=== PATIENT | female | born 1945 | race Caucasian/White ===

== ENCOUNTER 2017-12-26 09:26 | Observation (INO) | payer MEDICARE, OTHER ==
[2017-12-26 10:23] LABS: #Eosinphils 0.1 thou/uL (0.0-0.7); #Lymphocytes 1.3 thou/uL (1.20-3.40); #Monocytes 0.7 thou/uL (0.11-0.59); #Neutrophils 7.4 thou/uL (1.40-6.50); %Basophils 0.2 % (0.0-1.0); %Monocytes 7.4 % (0.0-10.0); %Neutrophils 77.3 % (42.0-75.0); Mean Corpuscular HGB CONC 33.5 g/dL (32.0-36.0); Mean Corpuscular Hemoglobin 30.7 pg (27.0-31.0); Mean Corpuscular Volume 91.7 fL (78.0-98.0); Mean Platelet Volume 8.1 fL (7.4-10.4); Platelet Count 212 thou/uL (130-400); RBC Distribution Width 12.8 % (11.5-14.5); Red Blood Cell (RBC) Count 4.56 mill/uL (4.20-5.40); White Blood Cell (WBC) Count 9.5 thou/uL (4.8-10.8)
[2017-12-26 10:29] LABS: INR-International Normal Ratio 2.3; PTT 33.7 SEC (22.9-36.1); Prothrombin Time 25.4 SEC (12.0-14.7)
[2017-12-26 10:46] LABS: ALT (SGPT) 15 U/L (8-55); AST (SGOT) 20 U/L (5-34); Albumin 3.8 g/dL (3.4-4.8); Alkaline Phosphatase 74 U/L (40-150); Anion Gap 13 mmol/L (10-20); BUN (Urea Nitrogen) 21 mg/dL (9.8-20.1); CK (CPK) 159 U/L (29-168); Calc. Creatinine Clearance 0 mL/min (70-130); Calcium 8.9 mg/dL (7.8-10.44); Carbon Dioxide 23 mmol/L (23-31); Chloride 109 mmol/L (98-107); Estimated GFR-MDRD 67; Glucose 108 mg/dL (83-110); Potassium 3.6 mmol/L (3.5-5.1); Protein, Total 6.8 g/dL (6.0-8.3); Sodium 141 mmol/L (136-145)
[2017-12-26 10:50] LABS: CKMB 2.6 ng/mL (0-6.6); Troponin I Less than 0.010 ng/mL (< 0.028)
--- NOTE | 2017-12-26 11:17 | CT ---
CT HEAD WITHOUT IV CONTRAST: Date: 12/26/17 HISTORY: Altered mental status, syncope. FINDINGS: There are scattered areas of decreased attenuation in the periventricular white matter, which are non specific, but likely reflective of mild chronic small vessel ischemic changes. There is no evidence o f an acute cortical infarction, hemorrhage, mass effect, or midline shift. Ventricular system is norm al in size, shape, and position. Mild cerebral volume loss is present, not unexpected for the patient 's age. Visualized paranasal sinuses and mastoid air cells are clear. Calvarial structures are intact . IMPRESSION: 1. No acute intracranial abnormality is demonstrated. 2. Mild chronic small vessel ischemic changes. POS: [facility]
[2017-12-26 11:38] LABS: Bilirubin Negative (Negative); Blood, Urine Trace (Negative); Glucose, Urine (Dipstick) Negative (Negative); Leukocyte Trace (Negative); Nitrite Negative (Negative); Protein, Urine (Dipstick) Negative (Neg-Trace); Urobilinogen 0.2 mg/dL (0.2-1.0)
--- NOTE | 2017-12-26 11:41 | CT ---
CTA OF THE THORAX UTILIZING IV CONTRAST AND 3D REFORMATTED IMAGING: Date: 12/26/17 INDICATION: History of syncope and history of PE. Patient has a history of PE and is currently on warfarin therap y. FINDINGS: No central or segmental pulmonary embolus is evident. No confluent air space opacity or pleural effus ion is evident. There are coronary artery thoracic aortic calcifications. There is are mild mitral an nular calcifications. No pathologically enlarged lymph nodes are evident. Visualized upper abdomen is unremarkable. There is diffuse osteopenia. There is scattered degenerative and osteoarthritic change. No definite a cute osseous abnormality is demonstrated. IMPRESSION: No central or segmental pulmonary embolus demonstrated. POS: [facility]
[2017-12-26 11:46] LABS: Clarity CLEAR (Clear)
[2017-12-26 11:48] LABS: Bacteria/HPF None Seen HPF (None Seen); Hyaline Casts/LPF NONE SEEN LPF (0-3 Hyaline); RBC/HPF None Seen HPF (0-3); Squamous Epithelial 0-3 HPF (0-3); WBC/HPF None Seen HPF (0-3)
[2017-12-26] MEDS ORDERED: methylPREDNISolone Sod Succ/PF 125 MG/2 ML VIAL ONE (12:26)
[2017-12-26] MEDS ORDERED: ISOVUE-370 76%-LOCM 1 ML ONE (14:40)
[2017-12-26 14:43] VITALS: BMI 36.8
[2017-12-26] MEDS ORDERED: Ondansetron ODT 4 MG TAB PO PRN (18:19)
[2017-12-26] MEDS ORDERED: Acetaminophen 325 MG TAB PO PRN (18:19)
[2017-12-26] MEDS ORDERED: diphenhydrAMINE 25 MG CAP PO PRN (18:34)
[2017-12-26] MEDS ORDERED: Warfarin Sodium 2.5 MG TAB PO SCH (20:00)
[2017-12-26] MEDS: Sodium Chloride 0.9% 1,000 ML IV SCH (20:44)
[2017-12-26] MEDS: Famotidine 20 MG TAB PO SCH (20:44)
--- NOTE | 2017-12-26 22:55 | HP ---
CHIEF COMPLAINT: Left-sided weakness. HISTORY OF PRESENT ILLNESS: The patient is a 72-year-old female, who was admitted today. She was in her usual state of health this morning, getting up and around in her yard, when she placed her arm against her chest she felt a sting on her right wrist. She then saw a yellow jacket lying on the ground, that was not completely at that moment. She subsequently had pain in the area, but was not unlike prior wasp stings that she had experienced in the past. The patient basically walked around her house to move a sprinkler and when she came back to the front yard something happened that she has some difficulty explaining or describing. She knows she was profoundly weak and a bit out of it mentally. There were some men around who had been working on the house who came to her aid. She was having some trouble concentrating, felt profoundly fatigued. They attempted to wrap some cool washcloths around her wrist. However, when they would do that and let go of her left wrist, her arm would simply fall down. She felt like she was just generally profoundly weak, but felt like it was more so on the left than the right. They called an ambulance and the ambulance came to assess the patient and found the patient not to be using left facial muscles, adequately either. They felt the patient might be having stroke symptoms and subsequently transported her here via [facility]. The patient's symptoms subsequently fully and completely resolved. She feels like she is at her baseline now. She has had increasing redness and swelling along the flexor portion of the right forearm emanating from the initial envenomation. She states she has never had a reaction like this to anything before. She does admit to having significant itching around the fingertips of both hands in the midst of this particular episode. REVIEW OF SYSTEMS: Negative thorough a 10-system review other than those things mentioned in the history of present illness. PAST MEDICAL HISTORY: Notable for reflux, hypothyroidism, hyperlipidemia, fibromyalgia syndrome, overactive bladder, and a PE/DVT. PAST SURGICAL HISTORY: x2. With one of those, she also had an appendectomy; with the second, she had a hysterectomy. She subsequently had an oophorectomy and had a left hip surgery, right foot surgery, and tonsillectomy. FAMILY HISTORY: Notable for colon cancer and breast cancer in her mother, who is still alive and functioning well and with her today. Her father of a myocardial infarction. SOCIAL HISTORY: The patient is a nonsmoker, nondrinker. She is a and lives in [place], [place] and her primary care provider is Dr. Tiny Gomez. PHYSICAL EXAMINATION: VITAL SIGNS: Temperature 98.3, pulse 79, respirations 18, O2 sat 93% on room air, blood pressure is 143/90. GENERAL APPEARANCE: Age appropriate female, in no distress. She is awake, alert, oriented, pleasant, and cooperative. HEENT: PERRL. No OP lesions. NECK: Supple and symmetric without lymphadenopathy, JVD or bruits. CARDIOVASCULAR: Regular rate and rhythm without murmurs, gallops or rubs. LUNGS: Clear to auscultation bilaterally with good chest wall expansion and air exchange. ABDOMEN: Flat, soft, nontender, nondistended with positive bowel sounds. No masses, no organomegaly. EXTREMITIES: Warm and dry. There is erythema encompassing 75% of the right flexor forearm. There was a line demarcated when she was admitted and it has exceeded that by 1-2 cm. This area is minimally tender, minimally warm. LABORATORY DATA AND IMAGING: White count 9.5, hemoglobin 14.0, platelets 212. INR is 2.3. Chemistries normal with the exception of a chloride of 109, BUN of 21. Troponin less than 0.01. Urinalysis normal. CTA of the chest shows no pulmonary embolus and CT scan of the brain shows no abnormalities other than some modest evidence of small vessel disease. IMPRESSION AND PLAN: 1. Left-sided weakness which has resolved. The patient had some generalized weakness, but it sounds like it was more substantial on the left and is now completely resolved. This is concerning for possible reaction to the hymenoptera envenomation. She may have had significant elevation or decrease of her blood pressure, resulting in some of these symptoms. She appears to have had an allergic reaction based on the itching in her fingers and the proximity of her symptoms to the envenomation. She did receive a dose of steroids in the emergency department and she appears to be stable at this time. I do not believe there is any more aggressive intervention needed at this time. However, if she does demonstrate any further symptoms, we will need more aggressive antihistamine therapy and possibly additional steroids. We will go ahead and obtain echocardiogram and carotid Dopplers as this may have only potentiated underlying problems that may have preexistent. 2. Hypothyroidism, stable. We will continue with her usual levothyroxine. 3. Hyperlipidemia. Continue with her usual home medications. [facility]
--- NOTE | 2017-12-27 00:32 | CON ---
DATE OF CONSULTATION: 12/26/2017 CHIEF COMPLAINT: Possible transient ischemic attack. HISTORY OF PRESENT ILLNESS: [place] has been stung by wasp even as a child and she also had a scorpion sting, a spider bite, and since she is out and there is a lot of trees a round where they live. Patient woke up early this morning and was getting water to the flower bed. She had yellow-jacket landed on her right arm and she does not remember what happened next. The yell ow jacket did sting up and she hit her chest, and then yellow jacket fell down, but patient felt one of the workers coming down her street and the next thing she knows is they are trying to help her up and she could not move her left arm and she does not know the full extent of the events. All she kno ws is that this incident happened and she does not know the duration of her events and she had signif icant swelling of the right upper extremity. She is on Coumadin for a pulmonary embolism. PAST MEDICAL HISTORY: She has hypertension, hyperlipidemia, and recent pulmonary embolism. PAST SURGICAL HISTORY: She had a hip replacement on the left side, , and hysterectomy. SOCIAL HISTORY: Does not use alcohol, lives with family. FAMILY HISTORY: Positive for cancer in several members on the maternal side of the family and heart attacks and cardiac issues on the paternal side of the family including many members of the family on the father's side passing away from heart problems. ALLERGIES: No known drug allergies. HOME MEDICATIONS: She is on Coumadin, Synthroid and does not remember the rest. REVIEW OF SYSTEMS: Pulmonary: Positive for pulmonary embolism recently, but no shortness of breath. ENT: Negative for any sore throat or swelling of the throat or rhinorrhea. Cardiovascular: Negat katherine for any chest pain or palpitations. Gastrointestinal: Negative for any constipation or diarrhea . Dermatologic: Positive for sting in the right forearm and swelling. Neurologic: Positive for tr ansient left-arm weakness. Hematologic: Normal. LABORATORY DATA: So far white count 9.5, hemoglobin 14, hematocrit 41.8, platelet 212. Chemistry: Sodium 141, potassium 3.6, chloride 109, bicarbonate 23, BUN 21, creatinine 0.84. ALT is 15, AST 20, alkaline phosphatase 74. Urinalysis is negative except for trace ketones and PT 25.4, INR 2.3, PTT 33.7. Her CT of the head which was performed shows no acute intracranial abnormality and mild chroni c small vessel ischemic changes. PHYSICAL EXAMINATION: VITAL SIGNS: Her blood pressure is 144/73, pulse 83, temperature 98.5, respiratory rate is 18. GENERAL APPEARANCE: Well-built, very pleasant lady. Right arm examination, there is some swelling i n the right arm. Mild redness was noted. CHEST: Clear vesicular breathing. CARDIAC: S1, S2 heard, no murmurs. ABDOMEN: Soft, nontender. HEART: S1, S2 heard, no murmurs. Carotids are clear. ABDOMEN: Soft, nontender, no organomegaly noted. NEUROLOGICAL: Higher intellectual functions normal, appropriate conversation. Normal orientation to time, place, and person. Cranial nerves II-XII normal. Fundus normal. Pupils 3, react equally to light. Extraocular movements are normal. Normal sensation of face bilaterally. Strength, no facial asymmetry. Tongue midline, no atrophy noted. Hearing is normal and normal elevation of palate. MOTOR: Bulk is normal, tone normal, strength 5/5 in upper and lower extremities bilaterally in iliop soas, hamstrings, quadriceps, ankle dorsiflexion, plantar flexion, deltoid, biceps, triceps, wrist ex tension/flexion, finger extension, and flexion. SENSORY: Normal touch, pinprick, proprioception, vibration bilaterally. CEREBELLAR: Normal [id number] and [id number]. Gait not tested. IMPRESSION: Patient is a 72-year-old lady with yellow-jacket sting in the right arm and she has asso ciated swelling of the right arm. There was transient loss of consciousness and her being having lef t-arm weakness. It is unclear what other vascular risk factors she has. She also has pulmonary embo lism and is on Coumadin. Her INR is at 2.3. Her current neurological examination is normal. Differ ential diagnosis is anaphylactic shock with passing out and transient neurological symptoms associate d with that versus transient ischemic attack due to ischemic vascular disease. RECOMMENDATIONS: MRI of the brain with and without gadolinium along with MR angiogram, carotid ultra sound scan, and echocardiogram. I will follow the patient with you.
[2017-12-27] MEDS ORDERED: Levothyroxine Sodium 25 MCG TAB PO SCH (06:00)
[2017-12-27] MEDS ORDERED: Levothyroxine Sodium 100 MCG TAB PO SCH (06:00)
[2017-12-27] MEDS: Sodium Chloride 0.9% 1,000 ML IV SCH ×2 (06:44→17:33)
[2017-12-27] MEDS: Famotidine 20 MG TAB PO SCH (08:46)
[2017-12-27] MEDS ORDERED: Pantoprazole 40 MG GRANULES PACKET PO SCH (09:00)
[2017-12-27] MEDS ORDERED: Oxybutynin ER 5 MG TAB PO SCH (09:00)
[2017-12-27] MEDS ORDERED: Atorvastatin Calcium 10 MG TAB PO SCH (09:00)
[2017-12-27] MEDS ORDERED: DULoxetine 60 MG CAP PO SCH (09:00)
--- NOTE | 2017-12-27 10:22 | ULT ---
CAROTID DUPLEX ULTRASOUND: INDICATION: History of TIAs. FINDINGS: Velocities were within normal limits. The right IC:CC ratio is 0.78 and the left IC:CC ratio is 0.88 . Antegrade flow is seen in both vertebral arteries. Peak systolic velocity of right CCA was 93.2 cm/s and the left was 88.2 cm/s. Peak systolic velocity within the right ICA was 72.4 cm/s and the left was 77.3 cm/s. IMPRESSION: No hemodynamically significant stenosis. POS: [facility]
--- NOTE | 2017-12-27 12:52 | PRG ---
DATE OF SERVICE: 12/27/2017 CHIEF COMPLAINT: Acute TIA. INTERVAL HISTORY: The patient is feeling better today and the swelling from the yellow jacket on the right hand is also improving. No further neurological symptoms. She is waiting for her MRI scan an d no additional reports since last night. PHYSICAL EXAMINATION: VITAL SIGNS: Blood pressure 149/83, temperature 97.5, pulse 73, and respiratory rate 18. NEUROLOGIC: She is alert, awake, oriented to time, place, person. Cranial nerves, no facial asymmet ry. Tongue midline. Motor: Normal strength bilaterally. IMPRESSION: Patient with a QT of possible TIA along with syncope yesterday following a bite from a y ellmarin jacket. At this time, she is waiting on her cardiac workup as well as her MRI scans to look in to her risk factors for stroke. She is currently on Coumadin and she stated she does not tolerate as pirin well. RECOMMENDATIONS: Please complete her workup including her MRI and I will follow up the patient with you. If her MRI is negative, she can be discharged home from a Neuro standpoint.
--- NOTE | 2017-12-27 14:11 | MRI ---
MRA TLINGIT & HAIDA OF LAURENT WITH 3D VOLUME RENDERING: INDICATION: TIA. FINDINGS: The imaged distal ICA, bilaterally, are patent. There is no significant stenosis or occlusion of eit her MCA. Bilateral anterior cerebral arteries are patent. Small caliber bilateral posterior cerebel lar arteries reveal no high-grade stenosis or occlusion. The imaged distal vertebral arteries and ba silar artery are patent. No discrete aneurysm is identified within limitations. IMPRESSION: No significant stenosis or occlusion of the nulato of Laurent. POS: [facility]
--- NOTE | 2017-12-27 14:24 | MRI ---
MRA NECK WITH AND WITHOUT CONTRAST AND 3D VOLUME RENDERING: CLINICAL HISTORY: CVA/TIA. FINDINGS: Imaged aspects of the bilateral vertebral arteries are patent There is flow-related signal within ea ch distal vertebral artery limiting assessment of these regions. The bilateral common carotid and ce rvical internal carotid arteries are patent. The imaged aortic arch is patent as are the visualized great vessels origins emanating from the arch. IMPRESSION: There is no major arterial stenosis or occlusion involving the neck. POS: [facility]
--- NOTE | 2017-12-27 14:36 | MRI ---
MRI OF BRAIN WITH AND WITHOUT CONTRAST: INDICATION: CVA/TIA. History of syncope. FINDINGS: There is normal size of the ventricular system. No mass effect, midline shift, or acute territorial infarction. There is minimal chronic microvascular ischemic disease. No intracranial hemorrhagic olguin sceptibility is present. There is no evidence of pathologic intraaxial enhancement. The visualized skull base flow voids are patent. There is motion artifact distorting detail and thus limiting asses sment. IMPRESSION: 1. No acute intracranial abnormalities. 2. Minimal chronic microvascular ischemic disease. POS: [facility]
[2017-12-27 15:55] VITALS: BP 160/81; TEMP 97.5
[2017-12-27] MEDS ORDERED: Warfarin Sodium 5 MG TAB PO SCH (17:00)
--- NOTE | 2017-12-28 00:28 | DIS ---
DATE OF ADMISSION: 12/26/2017 DATE OF DISCHARGE: 12/27/2017 DIAGNOSES AT THE TIME OF DISCHARGE: 1. Syncope and allergic reaction after yellow jacket bite. 2. Transient neurological symptoms most likely related to #1. Acute cerebrovascular was ruled out. 3. Hypothyroidism, stable. 4. Hyperlipidemia. HOSPITAL COURSE: The patient is a 72-year-old female who was admitted to the hospital with left-sided weakness after she was stung by the yellow jacket in the right forearm/hand. After this, she became profoundly weak, fatigued. EMS was called and they noticed that there was left facial mu scle, not symmetrical dysfunction. They felt that she could have a stroke. Subsequently, she was tr ansported via [facility] then all her symptoms completely resolved on the left side and she just had redness and swelling along the flexor portion of the right forearm from initial envenomation. She u nderwent evaluation in the emergency room, white count was 9.5, hemoglobin 14.0. Chemistry was withi n normal limits. Troponin I less than 0.01. Urinalysis was normal. CTA of the chest showed no pulm onary embolus and CT scan of the brain showed no abnormalities other than some modest evidence of sma ll vessel disease. She got additional one dose of steroids in the emergency room and at the time of admission, she looked quite stable to the admitting doctor. She got admitted, had Doppler of the car otid arteries done which did not show any abnormalities. She was seen by Dr. Rockwell for Neurology ev aluation. It was not really clear what happened, and she wanted to rule out neurological causes. By ordering MRI which was done and did not show any acute abnormalities except for minimal chronic micr ovascular ischemic disease. The patient is doing well. Vitals stable. She is assessed and examined before she is discharged. Blood pressure is 149/83, pulse is 82, temperature is 97.5, respiratory r ate is 18, O2 saturation is 98%. Her right wrist area swelling and the redness improved very much to the point that she can be discharged home. The neurologist agreed with the plan and she is going to be discharged on heart-healthy diet. Activities as tolerated. MEDICATIONS: At the time of discharge, atorvastatin 10 mg once a day, levothyroxine ____ mcg a day, warfarin 2.5 mg p.o. as directed, pantoprazole 40 mg once a day, oxybutynin 10 mg once a day, duloxet ine 1 tablet once a day, diphenhydramine, Benadryl p.r.n., and EpiPen 1 p.r.n. as needed in the case when she is bitten by a yellow jacket again. She is going to follow up with primary care physician in 1 week and she might have an allergy evaluat ion if this becomes a recurrent problem ____ less than 30 minutes.
[2017-12-29] MEDS ORDERED: Warfarin Sodium 2.5 MG TAB PO SCH (17:00)
== END 2017-12-27 18:16 | disposition home or self-care (01) ==
LOC: ERS 09:26 → 2SE 14:15
PROVIDERS: ADMIT Internal Medicine; ATTEND Internal Medicine
DX: R55 Syncope and collapse (principal); E03.9 Hypothyroidism, unspecified; E78.5 Hyperlipidemia, unspecified; I10 Essential (primary) hypertension; Z79.01 Long term (current) use of anticoagulants; Z79.899 Other long term (current) drug therapy
CPT/HCPCS: 70450; 70544; 70549; 70553; 71275; 80053; 82550; 82553; 84484; 85025; 85610; 85730; 93005; 93306; 93880; 96361 ×3; 96374; 99285; G0378; 36415; 81003; 81015; J2930

== ENCOUNTER 2022-04-18 01:50 | Observation (INO) | payer MEDICARE ==
[2022-04-18 02:17] VITALS: BMI 35.4
[2022-04-18] MEDS ORDERED: Ondansetron PF 4 MG/2 ML Vial IVP PRN (02:27)
[2022-04-18] MEDS ORDERED: Acetaminophen 325 MG TAB PO PRN (02:27)
[2022-04-18] MEDS ORDERED: Ondansetron ODT 4 MG TAB PO PRN (02:27)
[2022-04-18] MEDS ORDERED: hydrALAZINE 20 MG/ML VIAL SLOW IVP PRN (02:27)
[2022-04-18] MEDS ORDERED: Acetaminophen 650 MG Suppository PR PRN (02:27)
[2022-04-18] MEDS ORDERED: Acetaminophen 325 MG TAB PO SCH (02:45)
[2022-04-18 05:22] LABS: #Eosinphils 0.4 thou/uL (0.0-0.7); #Neutrophils 3.5 thou/uL (1.40-6.50); %Basophils 0.6 % (0.0-1.0); %Lymphocytes 38.4 % (21.0-51.0); %Monocytes 12.1 % (0.0-10.0); Hemoglobin 13.4 g/dL (12.0-16.0); Mean Corpuscular HGB CONC 32.4 g/dL (32.0-36.0); Mean Corpuscular Hemoglobin 30.8 pg (27.0-31.0); Mean Corpuscular Volume 94.9 fl (78.0-98.0); Mean Platelet Volume 8.8 fL (7.4-10.4); Platelet Count 210 10x3/uL (130-400); RBC Distribution Width 12.2 % (11.5-14.5); Red Blood Cell (RBC) Count 4.34 mill/uL (4.20-5.40); White Blood Cell (WBC) Count 7.8 10x3/uL (4.8-10.8)
[2022-04-18 05:44] LABS: Anion Gap 14 mmol/L (10-20); BUN (Urea Nitrogen) 22 mg/dL (9.8-20.1); Calc. Creatinine Clearance 74 mL/min (70-130); Calcium 9.2 mg/dL (7.8-10.44); Carbon Dioxide 26 mmol/L (23-31); Cardiac Risk 4.1 (Less than 4.5); Chloride 104 mmol/L (98-107); Cholesterol 203 mg/dl (< 200 Desired); Estimated GFR 59; Glucose 107 mg/dL (83-110); HDL Cholesterol 49 mg/dL (>60 Neg Risk); LDL Cholesterol, Calculated 132 mg/dL; Potassium 3.5 mmol/L (3.5-5.1); Sodium 140 mmol/L (136-145); Triglycerides 108 mg/dL (Less than 150)
[2022-04-18] MEDS ORDERED: Carvedilol 3.125 MG TAB PO SCH (08:45)
[2022-04-18] MEDS ORDERED: Levothyroxine Sodium 100 MCG TAB PO SCH (08:45)
[2022-04-18] MEDS: Clopidogrel Bisulfate 75 MG TAB PO SCH (09:52)
[2022-04-18] MEDS: Apixaban 2.5 MG TAB PO SCH ×2 (09:52→20:27)
[2022-04-18] MEDS ORDERED: Iopamidol 370 76% 100 ML VIAL ONE (10:02)
[2022-04-18] MEDS: Carvedilol 3.125 MG TAB PO SCH (17:50)
[2022-04-18] MEDS ORDERED: Atorvastatin Calcium 40 MG TAB PO SCH (21:00)
[2022-04-19] MEDS ORDERED: Levothyroxine Sodium 100 MCG TAB PO SCH (06:00)
[2022-04-19] MEDS: Apixaban 2.5 MG TAB PO SCH (09:15)
[2022-04-19] MEDS: Clopidogrel Bisulfate 75 MG TAB PO SCH (09:15)
[2022-04-19] MEDS: Carvedilol 3.125 MG TAB PO SCH (09:15)
[2022-04-19 11:44] VITALS: BP 136/69; TEMP 96.9
== END 2022-04-19 14:26 | disposition home or self-care (01) ==
LOC: NEURO 01:51
PROVIDERS: ADMIT Internal Medicine; ATTEND Internal Medicine
DX: G45.9 Transient cerebral ischemic attack, unspecified (principal); E78.5 Hyperlipidemia, unspecified; E11.9 Type 2 diabetes mellitus without complications; I10 Essential (primary) hypertension; E03.9 Hypothyroidism, unspecified; G93.40 Encephalopathy, unspecified; R55 Syncope and collapse; I70.8 Atherosclerosis of other arteries; I08.8 Other rheumatic multiple valve diseases; I25.10 Atherosclerotic heart disease of native coronary artery without angina pectoris; Z86.711 Personal history of pulmonary embolism; Z79.01 Long term (current) use of anticoagulants; Z79.02 Long term (current) use of antithrombotics/antiplatelets; Z79.890 Hormone replacement therapy; Z79.899 Other long term (current) drug therapy; Z95.5 Presence of coronary angioplasty implant and graft; Z20.822 Contact with and (suspected) exposure to COVID-19
CPT/HCPCS: 70496; 70498; 70551; 80048; 80061; 85025; 93306; 95712; 95819; 95957; 97116; 97535; U0003; U0005; 36415; G0378; Q9967

== ENCOUNTER 2023-05-19 21:16 | Inpatient (IN) | payer MEDICARE ==
[~2023-05-19 21:16] MED LIST: Iopamidol-370 76% 500 ML MDV (1 ML CHARGE) ONE
[2023-05-19 22:24] LABS: #Basophils 0.1 thou/uL (0.0-0.2); #Eosinphils 0.3 thou/uL (0.0-0.7); #Monocytes 0.9 thou/uL (0.11-0.59); #Neutrophils 4.2 thou/uL (1.40-6.50); %Basophils 0.6 % (0.0-1.0); %Eosinophils 3.7 % (0.0-10.0); %Monocytes 11.1 % (0.0-10.0); %Neutrophils 51.4 % (42.0-75.0); Hematocrit 43.1 % (36.0-47.0); Hemoglobin 14.5 g/dL (12.0-16.0); Mean Corpuscular HGB CONC 33.6 g/dL (32.0-36.0); Mean Corpuscular Hemoglobin 31.2 pg (27.0-31.0); Mean Corpuscular Volume 92.7 fl (78.0-98.0); Mean Platelet Volume 11.6 fL (7.4-10.4); Platelet Count 232 10x3/uL (130-400); RBC Distribution Width 14.3 % (11.5-14.5); Red Blood Cell (RBC) Count 4.65 mill/uL (4.20-5.40); White Blood Cell (WBC) Count 8.2 10x3/uL (4.8-10.8)
[2023-05-19 22:41] LABS: PTT 23.6 sec (22.9-36.1); Prothrombin Time 13.4 sec (12.0-14.7)
[2023-05-19 22:49] LABS: ALT (SGPT) 14 U/L (8-55); AST (SGOT) 20 U/L (5-34); Albumin 4.1 g/dL (3.4-4.8); Alkaline Phosphatase 75 U/L (40-110); Anion Gap 15 mmol/L (10-20); BUN (Urea Nitrogen) 19 mg/dL (9.8-20.1); CK (CPK) 78 U/L (29-168); Calc. Creatinine Clearance 0 mL/min (70-130); Calcium 9.5 mg/dL (7.8-10.44); Carbon Dioxide 22 mmol/L (23-31); Chloride 105 mmol/L (98-107); Estimated GFR 72; Globulin 2.8 g/dL (2.4-3.5); Glucose 101 mg/dL (83-110); Potassium 3.9 mmol/L (3.5-5.1); Protein, Total 6.9 g/dL (5.8-8.1); Sodium 138 mmol/L (136-145)
[2023-05-19 22:53] LABS: Troponin I Less than 0.010 ng/mL (< 0.028)
[2023-05-19 23:08] LABS: Bacteria/HPF None Seen HPF (None Seen); Bilirubin Negative (Negative); Blood, Urine Negative (Negative); CAUTI Indications for Culture Alt mental st,lethar; Clarity Clear (Clear); Glucose, Urine (Dipstick) Normal (Negative); Ketone, Urine Negative (Negative); Leukocyte Negative Leu/uL (Negative); Mucous/LPF 1+ LPF (<2+); Nitrite Negative (Negative); Protein, Urine (Dipstick) Negative (Neg-Trace); RBC/HPF 0-3 HPF (0-3); Specific Gravity, Urine 1.036 (1.002-1.036); Squamous Epithelial None Seen HPF (0-3); Urobilinogen Normal mg/dL (Less than 2); WBC/HPF 0-3 HPF (0-3)
[2023-05-19] MEDS ORDERED: Aspirin 325 MG TAB ONE (23:15)
[2023-05-19 23:16] LABS: Amphetamine Not Detected (NotDetected); Barbiturates Screen Not Detected (NotDetected); Benzodiazepine Screen Not Detected (NotDetected); Cocaine Metabolite Screen Not Detected (NotDetected); Methadone Not Detected (NotDetected); Methamphetamine Not Detected (NotDetected); Opiate Screen Not Detected (NotDetected); Oxycodone Screen Not Detected (NotDetected); Phencyclidine (PCP) Not Detected (NotDetected); THC/Cannabinoid Screen Not Detected (NotDetected); Tricyclic Screen Not Detected (NotDetected)
[2023-05-19 23:17] LABS: Urine Culture Reflex No No
[2023-05-19 23:27] LABS: SARS-CoV-2 NAA Rapid Test Not Detected (NotDetected)
[2023-05-19 23:27] LABS: Alcohol Less than 10.0 mg/dL (Less than 10)
[2023-05-19 23:29] LABS: Acetaminophen Less than 10 mcg/mL (10.0-30.0); Salicylate Less than 8.0 mg/dL (15.0-30.0)
[2023-05-19] MEDS ORDERED: D5 1/2 NS w/20 mEq KCL 1,000 ML IV SCH (23:30)
[2023-05-19] MEDS ORDERED: Ondansetron ODT 4 MG TAB SL PRN (23:45)
[2023-05-19] MEDS ORDERED: Ondansetron PF 4 MG/2 ML Vial IVP PRN (23:45)
[2023-05-19] MEDS ORDERED: hydrALAZINE 20 MG/ML VIAL SLOW IVP PRN (23:47)
[2023-05-19] MEDS ORDERED: Labetalol HCl 100 MG/20 ML VIAL SLOW IVP PRN (23:47)
[2023-05-20] MEDS ORDERED: Labetalol HCl 100 MG/20 ML VIAL ONE (02:12)
[2023-05-20 03:57] LABS: Free T4 (Free Thyroxine) 0.85 ng/dL (0.70-1.48)
[2023-05-20] MEDS ORDERED: Levothyroxine Sodium 125 MCG TAB PO SCH (06:00)
[2023-05-20 06:07] LABS: #Eosinphils 0.1 thou/uL (0.0-0.7); #Monocytes 0.7 thou/uL (0.11-0.59); #Neutrophils 5.6 thou/uL (1.40-6.50); %Basophils 0.3 % (0.0-1.0); %Eosinophils 0.6 % (0.0-10.0); %Lymphocytes 26.5 % (21.0-51.0); %Monocytes 7.8 % (0.0-10.0); %Neutrophils 64.6 % (42.0-75.0); Hemoglobin 13.3 g/dL (12.0-16.0); Mean Corpuscular HGB CONC 33.3 g/dL (32.0-36.0); Mean Corpuscular Hemoglobin 30.4 pg (27.0-31.0); Mean Corpuscular Volume 91.5 fl (78.0-98.0); Mean Platelet Volume 12.1 fL (7.4-10.4); Platelet Count 219 10x3/uL (130-400); RBC Distribution Width 14.1 % (11.5-14.5); Red Blood Cell (RBC) Count 4.37 mill/uL (4.20-5.40); White Blood Cell (WBC) Count 8.7 10x3/uL (4.8-10.8)
[2023-05-20] MEDS ORDERED: Levothyroxine Sodium 100 MCG TAB ONE (06:09)
[2023-05-20] MEDS: Levothyroxine Sodium 100 MCG TAB PO SCH (06:19)
[2023-05-20 06:33] LABS: Anion Gap 12 mmol/L (10-20); BUN (Urea Nitrogen) 14 mg/dL (9.8-20.1); Calc. Creatinine Clearance 101 mL/min (70-130); Calcium 8.5 mg/dL (7.8-10.44); Carbon Dioxide 20 mmol/L (23-31); Cardiac Risk 3.3 (Less than 4.5); Chloride 109 mmol/L (98-107); Cholesterol 177 mg/dl (< 200 Desired); Estimated GFR 81; Glucose 111 mg/dL (83-110); HDL Cholesterol 53 mg/dL (>60 Neg Risk); LDL Cholesterol, Calculated 112 mg/dL; Potassium 3.4 mmol/L (3.5-5.1); Sodium 138 mmol/L (136-145); Triglycerides 62 mg/dL (Less than 150)
[2023-05-20] MEDS ORDERED: Aspirin 325 MG TAB PO SCH (09:00)
[2023-05-20] MEDS ORDERED: Aspirin Chewable 81 MG TAB ONE (09:28)
[2023-05-20] MEDS ORDERED: Clopidogrel Bisulfate 75 MG TAB ONE (09:28)
[2023-05-20] MEDS: Clopidogrel Bisulfate 75 MG TAB PO SCH (09:58)
[2023-05-20] MEDS: Aspirin 81 mg Enteric Coated Tablet PO SCH (09:58)
[2023-05-20 17:41] VITALS: BMI 35.1
[2023-05-20] MEDS ORDERED: VANCOMYCIN IVPB PRN (18:04)
[2023-05-20] MEDS ORDERED: Vancomycin (BATCH) 2 GM in Premix 1 BAG IVPB SCH (18:15)
[2023-05-20] MEDS: Atorvastatin Calcium 40 MG TAB PO SCH (20:12)
[2023-05-21 05:07] LABS: #Basophils 0.1 thou/uL (0.0-0.2); #Eosinphils 0.3 thou/uL (0.0-0.7); #Monocytes 0.8 thou/uL (0.11-0.59); #Neutrophils 2.7 thou/uL (1.40-6.50); %Eosinophils 5.4 % (0.0-10.0); %Lymphocytes 36.4 % (21.0-51.0); %Monocytes 12.7 % (0.0-10.0); %Neutrophils 44.3 % (42.0-75.0); Hematocrit 41.5 % (36.0-47.0); Hemoglobin 13.5 g/dL (12.0-16.0); Mean Corpuscular HGB CONC 32.5 g/dL (32.0-36.0); Mean Corpuscular Hemoglobin 30.6 pg (27.0-31.0); Mean Corpuscular Volume 94.1 fl (78.0-98.0); Mean Platelet Volume 11.5 fL (7.4-10.4); Platelet Count 210 10x3/uL (130-400); RBC Distribution Width 14.6 % (11.5-14.5); Red Blood Cell (RBC) Count 4.41 mill/uL (4.20-5.40); White Blood Cell (WBC) Count 6.1 10x3/uL (4.8-10.8)
[2023-05-21 05:35] LABS: Anion Gap 11 mmol/L (10-20); BUN (Urea Nitrogen) 15 mg/dL (9.8-20.1); Calc. Creatinine Clearance 87 mL/min (70-130); Calcium 8.7 mg/dL (7.8-10.44); Carbon Dioxide 23 mmol/L (23-31); Chloride 111 mmol/L (98-107); Estimated GFR 74; Glucose 109 mg/dL (83-110); Potassium 3.3 mmol/L (3.5-5.1); Sodium 142 mmol/L (136-145)
[2023-05-21] MEDS: Levothyroxine Sodium 100 MCG TAB PO SCH (05:53)
[2023-05-21] MEDS ORDERED: Electrolyte Replacement Protocol 1 EACH FS SCH (07:40)
[2023-05-21] MEDS ORDERED: Potassium Chloride 20 MEQ TAB PO SCH (08:00)
[2023-05-21] MEDS: Aspirin 81 mg Enteric Coated Tablet PO SCH (08:09)
[2023-05-21] MEDS: Clopidogrel Bisulfate 75 MG TAB PO SCH (08:09)
[2023-05-21] MEDS: Vancomycin 1 GM in Premix 1 BAG IVPB SCH ×2 (08:09→19:58)
[2023-05-21] MEDS ORDERED: FLU VACC QS2023(65UP)/MF59C/PF 60 MCG/0.5 ML SYRINGE IM ONE (09:00)
[2023-05-21] MEDS ORDERED: Carvedilol 3.125 MG TAB PO SCH ×2 (10:34→21:00)
[2023-05-21] MEDS: hydrALAZINE 20 MG/ML VIAL SLOW IVP PRN ×3 (11:53→23:19)
[2023-05-21] MEDS: Acetaminophen 325 MG TAB PO PRN ×2 (19:57→23:19)
[2023-05-21] MEDS: Losartan 25 MG TAB PO SCH (19:57)
[2023-05-21] MEDS: Carvedilol 3.125 MG TAB PO SCH (19:57)
[2023-05-21] MEDS: Atorvastatin Calcium 40 MG TAB PO SCH (19:57)
[2023-05-22] MEDS: hydrALAZINE 20 MG/ML VIAL SLOW IVP PRN (03:06)
[2023-05-22] MEDS: Levothyroxine Sodium 100 MCG TAB PO SCH (06:16)
[2023-05-22 07:22] LABS: #Basophils 0.1 thou/uL (0.0-0.2); #Eosinphils 0.4 thou/uL (0.0-0.7); #Monocytes 0.8 thou/uL (0.11-0.59); #Neutrophils 3.3 thou/uL (1.40-6.50); %Basophils 0.9 % (0.0-1.0); %Eosinophils 6.4 % (0.0-10.0); %Lymphocytes 31.8 % (21.0-51.0); %Monocytes 11.6 % (0.0-10.0); %Neutrophils 49.2 % (42.0-75.0); Hematocrit 41.5 % (36.0-47.0); Hemoglobin 13.5 g/dL (12.0-16.0); Mean Corpuscular HGB CONC 32.5 g/dL (32.0-36.0); Mean Corpuscular Hemoglobin 30.3 pg (27.0-31.0); Mean Corpuscular Volume 93.3 fl (78.0-98.0); Mean Platelet Volume 11.5 fL (7.4-10.4); Platelet Count 221 10x3/uL (130-400); RBC Distribution Width 14.6 % (11.5-14.5); Red Blood Cell (RBC) Count 4.45 mill/uL (4.20-5.40); White Blood Cell (WBC) Count 6.7 10x3/uL (4.8-10.8)
[2023-05-22 07:44] LABS: Calcium 8.6 mg/dL (7.8-10.44); Chloride 112 mmol/L (98-107); Potassium 3.6 mmol/L (3.5-5.1); Sodium 141 mmol/L (136-145)
[2023-05-22 07:45] LABS: Glucose 104 mg/dL (83-110)
[2023-05-22 07:46] LABS: Anion Gap 11 mmol/L (10-20); Carbon Dioxide 22 mmol/L (23-31)
[2023-05-22 07:48] LABS: Calc. Creatinine Clearance 83 mL/min (70-130); Estimated GFR 70
[2023-05-22 07:49] LABS: BUN (Urea Nitrogen) 21 mg/dL (9.8-20.1); Vancomycin, Trough 18.9 ug/mL
[2023-05-22] MEDS: Carvedilol 3.125 MG TAB PO SCH ×2 (08:12→20:39)
[2023-05-22] MEDS: Aspirin 81 mg Enteric Coated Tablet PO SCH (08:12)
[2023-05-22] MEDS: Clopidogrel Bisulfate 75 MG TAB PO SCH (08:13)
[2023-05-22] MEDS: Vancomycin 1 GM in Premix 1 BAG IVPB SCH (08:13)
[2023-05-22] MEDS ORDERED: Magnesium 2 GM/50 ML(in water) 2 GM in Premix 1 BAG IVPB SCH (09:00)
[2023-05-22] MEDS: Acetaminophen 325 MG TAB PO PRN ×2 (09:05→13:57)
[2023-05-22] MEDS: cefTRIAXone\\ROCEPHIN 2 GM in Sodium Chloride 0.9% 100 ML IVPB SCH (15:56)
[2023-05-22] MEDS: Losartan 25 MG TAB PO SCH (20:39)
[2023-05-22] MEDS: Atorvastatin Calcium 40 MG TAB PO SCH (20:39)
[2023-05-23] MEDS ORDERED: hydrALAZINE 20 MG/ML VIAL SLOW IVP SCH (03:30)
[2023-05-23 04:47] LABS: Magnesium 2.3 mg/dL (1.6-2.6)
[2023-05-23] MEDS: Levothyroxine Sodium 100 MCG TAB PO SCH (05:46)
[2023-05-23] MEDS: Aspirin 81 mg Enteric Coated Tablet PO SCH (08:20)
[2023-05-23] MEDS: Carvedilol 3.125 MG TAB PO SCH (08:20)
[2023-05-23] MEDS: Clopidogrel Bisulfate 75 MG TAB PO SCH (08:20)
[2023-05-23] MEDS ORDERED: Carvedilol 3.125 MG TAB PO SCH (09:51)
[2023-05-23] MEDS ORDERED: Amlodipine 10 MG TAB PO SCH (10:00)
[2023-05-23] MEDS ORDERED: Carvedilol 6.25 MG TAB PO SCH (10:15)
[2023-05-23] MEDS: cefTRIAXone\\ROCEPHIN 2 GM in Sodium Chloride 0.9% 100 ML IVPB SCH (15:02)
[2023-05-23] MEDS: Carvedilol 6.25 MG TAB PO SCH (20:36)
[2023-05-23] MEDS: Atorvastatin Calcium 40 MG TAB PO SCH (20:36)
[2023-05-23] MEDS ORDERED: Losartan 25 MG TAB PO SCH (21:00)
[2023-05-24] MEDS: Levothyroxine Sodium 100 MCG TAB PO SCH (06:12)
[2023-05-24] MEDS: Aspirin 81 mg Enteric Coated Tablet PO SCH (08:17)
[2023-05-24] MEDS: Clopidogrel Bisulfate 75 MG TAB PO SCH (08:18)
[2023-05-24] MEDS: Carvedilol 6.25 MG TAB PO SCH (08:18)
[2023-05-24] MEDS ORDERED: Levothyroxine Sodium 100 MCG TAB PO SCH (08:30)
[2023-05-24] MEDS ORDERED: Levothyroxine 150 MCG TAB PO SCH (08:45)
[2023-05-24] MEDS ORDERED: Amlodipine 10 MG TAB PO SCH ×2 (09:00)
[2023-05-24 13:09] VITALS: BP 119/58; TEMP 97.9
[2023-05-25] MEDS ORDERED: Levothyroxine 150 MCG TAB PO SCH (06:00)
== END 2023-05-24 14:30 | disposition home or self-care (01) | DRG 304 ==
LOC: ERS 21:16 → ERHOLD 23:25 → INTOOBSV 23:25 → 2SE 05-20 17:10 → OBSVTOIN 05-21 07:44
PROVIDERS: ADMIT Student in an Organized Health Care Education/Training Program; ATTEND Hospitalist
PROC: 4A00X4Z Measurement of Central Nervous Electrical Activity, External Approach (ICD-10-PCS; principal; 2023-05-20)
DX: I16.1 Hypertensive emergency (principal); G93.41 Metabolic encephalopathy; G45.9 Transient cerebral ischemic attack, unspecified; R78.81 Bacteremia; I10 Essential (primary) hypertension; E78.5 Hyperlipidemia, unspecified; E03.9 Hypothyroidism, unspecified; R29.6 Repeated falls; R53.1 Weakness; B95.5 Unspecified streptococcus as the cause of diseases classified elsewhere; Z96.642 Presence of left artificial hip joint; Z86.711 Personal history of pulmonary embolism; Z79.890 Hormone replacement therapy; Z79.899 Other long term (current) drug therapy; Z98.890 Other specified postprocedural states; Z98.891 History of uterine scar from previous surgery; Z90.710 Acquired absence of both cervix and uterus
CPT/HCPCS: 0042T; 36415; 51701; 70450; 70496; 70498; 70551; 71045; 80048; 80053; 80061; 80202; 80306; 80307; 81001; 82550; 83690; 83735; 83880; 84439; 84443; 84481; 84484; 85025; 85610; 85730; 87040; 87077; 87149; 87186; 93005; 93306; 95816; 95819; 96365; 96367; 96375; G0378; J0360; J0696; J3370; J3370-JW; J3475; J3490; Q9967

== ENCOUNTER 2023-08-19 13:36 | Inpatient (IN) | payer MEDICARE, OTHER ==
[~2023-08-19 13:36] MED LIST changes: +ISOVUE-370 76% MDV (1 ML CHARGE) ONE; -Iopamidol-370 76% 500 ML MDV (1 ML CHARGE) ONE
[2023-08-19 14:23] LABS: #Basophils 0.1 thou/uL (0.0-0.2); #Eosinphils 0.4 thou/uL (0.0-0.7); #Neutrophils 6.3 thou/uL (1.40-6.50); %Basophils 0.7 % (0.0-1.0); %Eosinophils 3.9 % (0.0-10.0); %Monocytes 9.6 % (0.0-10.0); %Neutrophils 60.5 % (42.0-75.0); Hematocrit 44.2 % (36.0-47.0); Hemoglobin 14.7 g/dL (12.0-16.0); Mean Corpuscular HGB CONC 33.3 g/dL (32.0-36.0); Mean Corpuscular Hemoglobin 30.2 pg (27.0-31.0); Mean Corpuscular Volume 90.8 fl (78.0-98.0); Mean Platelet Volume 12.2 fL (7.4-10.4); Platelet Count 247 10x3/uL (130-400); RBC Distribution Width 14.1 % (11.5-14.5); Red Blood Cell (RBC) Count 4.87 mill/uL (4.20-5.40); White Blood Cell (WBC) Count 10.4 10x3/uL (4.8-10.8)
[2023-08-19 14:34] LABS: ALT (SGPT) 13 U/L (8-55); AST (SGOT) 17 U/L (5-34); Albumin 3.9 g/dL (3.4-4.8); Alkaline Phosphatase 80 U/L (40-110); Anion Gap 12 mmol/L (10-20); BUN (Urea Nitrogen) 23 mg/dL (9.8-20.1); Bilirubin, Total 0.8 mg/dL (0.2-1.2); Calc. Creatinine Clearance 0 mL/min (70-130); Calcium 9.7 mg/dL (7.8-10.44); Carbon Dioxide 27 mmol/L (23-31); Chloride 108 mmol/L (98-107); Estimated GFR 49; Globulin 2.8 g/dL (2.4-3.5); Glucose 85 mg/dL (83-110); Potassium 3.7 mmol/L (3.5-5.1); Protein, Total 6.7 g/dL (5.8-8.1); Sodium 143 mmol/L (136-145)
[2023-08-19 14:37] LABS: INR-International Normal Ratio 1.1; PTT 27.8 sec (22.9-36.1); Prothrombin Time 14.6 sec (12.0-14.7)
[2023-08-19] MEDS ORDERED: Senokot S 8.6-50 MG TAB PO PRN (18:48)
[2023-08-19] MEDS ORDERED: hydrALAZINE 20 MG/ML VIAL SLOW IVP PRN (18:48)
[2023-08-19] MEDS ORDERED: Acetaminophen 650 MG Suppository PR PRN (18:48)
[2023-08-19] MEDS ORDERED: Acetaminophen 325 MG TAB PO PRN (18:48)
[2023-08-19] MEDS ORDERED: Ondansetron ODT 4 MG TAB PO PRN (18:48)
[2023-08-19] MEDS ORDERED: Non-Formulary Item 1 EACH (Atorvastatin Calcium [Lipitor] 80 MG Tablet) PO SCH (21:00)
[2023-08-19] MEDS: Atorvastatin Calcium 40 MG TAB PO SCH (21:52)
[2023-08-19] MEDS: Apixaban 2.5 MG TAB PO SCH (21:52)
[2023-08-20 00:27] VITALS: BMI 34.7
[2023-08-20 05:18] LABS: #Basophils 0.1 thou/uL (0.0-0.2); #Eosinphils 0.5 thou/uL (0.0-0.7); #Monocytes 0.8 thou/uL (0.11-0.59); #Neutrophils 3.6 thou/uL (1.40-6.50); %Basophils 0.7 % (0.0-1.0); %Eosinophils 6.3 % (0.0-10.0); %Lymphocytes 37.2 % (21.0-51.0); %Monocytes 10.1 % (0.0-10.0); %Neutrophils 45.3 % (42.0-75.0); Hematocrit 40.3 % (36.0-47.0); Hemoglobin 13.3 g/dL (12.0-16.0); Mean Corpuscular Hemoglobin 30.4 pg (27.0-31.0); Platelet Count 207 10x3/uL (130-400); RBC Distribution Width 14.2 % (11.5-14.5); Red Blood Cell (RBC) Count 4.38 mill/uL (4.20-5.40)
[2023-08-20 05:37] LABS: Anion Gap 13 mmol/L (10-20); BUN (Urea Nitrogen) 22 mg/dL (9.8-20.1); Calc. Creatinine Clearance 91 mL/min (70-130); Calcium 8.7 mg/dL (7.8-10.44); Carbon Dioxide 23 mmol/L (23-31); Cardiac Risk 3.4 (Less than 4.5); Chloride 109 mmol/L (98-107); Cholesterol 162 mg/dl (< 200 Desired); Estimated GFR 80; Glucose 101 mg/dL (83-110); HDL Cholesterol 47 mg/dL (>60 Neg Risk); LDL Cholesterol, Calculated 100 mg/dL; Potassium 3.7 mmol/L (3.5-5.1); Sodium 141 mmol/L (136-145); Triglycerides 75 mg/dL (Less than 150)
[2023-08-20] MEDS: Levothyroxine 150 MCG TAB PO SCH (05:40)
[2023-08-21 05:15] LABS: #Eosinphils 0.5 thou/uL (0.0-0.7); #Monocytes 0.7 thou/uL (0.11-0.59); #Neutrophils 2.8 thou/uL (1.40-6.50); %Basophils 0.7 % (0.0-1.0); %Eosinophils 8.5 % (0.0-10.0); %Lymphocytes 33.4 % (21.0-51.0); %Neutrophils 46.2 % (42.0-75.0); Hematocrit 41.2 % (36.0-47.0); Hemoglobin 13.6 g/dL (12.0-16.0); Mean Corpuscular Hemoglobin 30.5 pg (27.0-31.0); Mean Corpuscular Volume 92.4 fl (78.0-98.0); Mean Platelet Volume 12.1 fL (7.4-10.4); Platelet Count 211 10x3/uL (130-400); RBC Distribution Width 14.3 % (11.5-14.5); Red Blood Cell (RBC) Count 4.46 mill/uL (4.20-5.40)
[2023-08-21 05:35] LABS: Anion Gap 12 mmol/L (10-20); BUN (Urea Nitrogen) 24 mg/dL (9.8-20.1); Calc. Creatinine Clearance 83 mL/min (70-130); Calcium 8.8 mg/dL (7.8-10.44); Carbon Dioxide 23 mmol/L (23-31); Chloride 109 mmol/L (98-107); Estimated GFR 71; Glucose 117 mg/dL (83-110); Potassium 4.2 mmol/L (3.5-5.1); Sodium 140 mmol/L (136-145)
[2023-08-21] MEDS: Aspirin 81 mg Enteric Coated Tablet PO SCH (14:07)
[2023-08-21] MEDS: Lactated Ringer's 1,000 ML IV SCH (14:07)
[2023-08-22 05:42] LABS: #Basophils 0.1 thou/uL (0.0-0.2); #Eosinphils 0.4 thou/uL (0.0-0.7); #Monocytes 0.7 thou/uL (0.11-0.59); #Neutrophils 8.5 thou/uL (1.40-6.50); %Basophils 0.5 % (0.0-1.0); %Eosinophils 3.7 % (0.0-10.0); %Lymphocytes 9.6 % (21.0-51.0); %Monocytes 6.2 % (0.0-10.0); %Neutrophils 79.6 % (42.0-75.0); Hematocrit 42.9 % (36.0-47.0); Hemoglobin 14.4 g/dL (12.0-16.0); Mean Corpuscular HGB CONC 33.6 g/dL (32.0-36.0); Mean Corpuscular Hemoglobin 30.3 pg (27.0-31.0); Mean Corpuscular Volume 90.1 fl (78.0-98.0); Mean Platelet Volume 11.8 fL (7.4-10.4); Platelet Count 180 10x3/uL (130-400); RBC Distribution Width 14.2 % (11.5-14.5); Red Blood Cell (RBC) Count 4.76 mill/uL (4.20-5.40); White Blood Cell (WBC) Count 10.7 10x3/uL (4.8-10.8)
[2023-08-22 06:09] LABS: Anion Gap 17 mmol/L (10-20); BUN (Urea Nitrogen) 18 mg/dL (9.8-20.1); Calc. Creatinine Clearance 85 mL/min (70-130); Calcium 8.9 mg/dL (7.8-10.44); Carbon Dioxide 17 mmol/L (23-31); Chloride 109 mmol/L (98-107); Estimated GFR 73; Glucose 176 mg/dL (83-110); Potassium 4.1 mmol/L (3.5-5.1); Sodium 139 mmol/L (136-145)
[2023-08-22] MEDS: Aspirin 81 mg Enteric Coated Tablet PO SCH (08:02)
[2023-08-23 06:31] LABS: #Eosinphils 0.5 thou/uL (0.0-0.7); #Monocytes 0.8 thou/uL (0.11-0.59); #Neutrophils 2.5 thou/uL (1.40-6.50); %Basophils 0.7 % (0.0-1.0); %Eosinophils 8.1 % (0.0-10.0); %Lymphocytes 33.3 % (21.0-51.0); %Monocytes 13.4 % (0.0-10.0); %Neutrophils 44.1 % (42.0-75.0); Hematocrit 44.2 % (36.0-47.0); Hemoglobin 14.5 g/dL (12.0-16.0); Mean Corpuscular HGB CONC 32.8 g/dL (32.0-36.0); Mean Corpuscular Hemoglobin 30.1 pg (27.0-31.0); Mean Corpuscular Volume 91.9 fl (78.0-98.0); Platelet Count 212 10x3/uL (130-400); RBC Distribution Width 14.4 % (11.5-14.5); Red Blood Cell (RBC) Count 4.81 mill/uL (4.20-5.40); White Blood Cell (WBC) Count 5.6 10x3/uL (4.8-10.8)
[2023-08-23 06:47] LABS: Anion Gap 15 mmol/L (10-20); BUN (Urea Nitrogen) 24 mg/dL (9.8-20.1); Calc. Creatinine Clearance 77 mL/min (70-130); Calcium 9.1 mg/dL (7.8-10.44); Carbon Dioxide 24 mmol/L (23-31); Chloride 108 mmol/L (98-107); Estimated GFR 65; Glucose 117 mg/dL (83-110); Potassium 4.1 mmol/L (3.5-5.1); Sodium 143 mmol/L (136-145)
[2023-08-23 13:00] VITALS: BP 137/71; TEMP 98.4
== END 2023-08-23 17:24 | disposition home or self-care (01) | DRG 66 ==
LOC: ERS 13:36 → ERHOLD 15:10 → 2SE 21:15 → OBSVTOIN 08-20 15:44
PROVIDERS: ADMIT Family Medicine; ATTEND Hospitalist
DX: I63.9 Cerebral infarction, unspecified (principal); I95.1 Orthostatic hypotension; R47.01 Aphasia; I10 Essential (primary) hypertension; E78.5 Hyperlipidemia, unspecified; E03.9 Hypothyroidism, unspecified; Z96.642 Presence of left artificial hip joint; Z86.711 Personal history of pulmonary embolism; Z79.899 Other long term (current) drug therapy; Z79.2 Long term (current) use of antibiotics; Z79.890 Hormone replacement therapy; Z98.890 Other specified postprocedural states; Z98.891 History of uterine scar from previous surgery; Z90.710 Acquired absence of both cervix and uterus; Z91.199 Patient's noncompliance with other medical treatment and regimen due to unspecified reason
CPT/HCPCS: 36415; 36416; 70450; 70496; 70498; 70551; 71045; 80048; 80053; 80061; 85025; 85610; 85730; 93005; 93306; G0378; J7120